=== PATIENT | male | born 1950 | race Caucasian/White ===

== ENCOUNTER → 2016-12-29 | Outpatient (CLI) | payer MEDICARE ==
--- NOTE | 2016-12-29 09:19 | CARD ---
APPROVED REPORT EXAM: Two-dimensional and M-mode echocardiogram with Doppler and color Doppler. Other Information Quality : Average Rhythm : NSR with PAC's INDICATION Atrial Fibrillation 2D DIMENSIONS Left Atrium(2D)3.4 (1.6-4.0cm)IVSd1.5 (0.7-1.1cm) Aortic Root(2D)4.0 (2.0-3.7cm)LVDd4.6 (3.9-5.9cm) LVOT Diameter2.4 (1.8-2.4cm)PWd1.5 (0.7-1.1cm) LVDs3.4 (2.5-4.0cm)FS (%) 26.5 % SV49.5 mlLVEF(%)51.9 (>50%) Aortic Valve AoV Peak Moises.127.1cm/sAoV VTI24.4cm AO Peak GR.6.5mmHgLVOT Peak Moises.94.6cm/s LVOT VTI 19.09cmAO Mean GR.4mmHg TERRI (VMAX)3.34te3GCC (VTI)3.59cm2 AI P 1/2 Cqek591vz Mitral Valve MV E Rmkcgnbj75.1cm/sMV DECEL QQZY581wl MV A Pdgsrxrk37.5cm/sE/A Ratio0.6 MV A Mexbquum996zf Tricuspid Valve TR P. Equtwhtf528yj/sRAP YQOZPSAF0vtDu TR Peak Gr.63spHjMDZB24nvGs LEFT VENTRICLE The left ventricle is normal size. There is mild to moderate concentric left ventricular hypertrophy. Left ventricle systolic function is low normal. The Ejection Fraction is 50-55%. Subtle global hypok inesis. Transmitral Doppler flow pattern is Grade I-abnormal relaxation pattern. RIGHT VENTRICLE The right ventricle is normal size. The right ventricular systolic function is normal. ATRIA The left atrium size is normal. The right atrium size is normal. The interatrial septum is intact wit h no evidence for an atrial septal defect or patent foramen ovale as noted on 2-D or Doppler imaging. AORTIC VALVE The aortic valve is normal in structure.The aortic valve is trileaflet. Doppler and Color Flow reveal ed trace to mild aortic regurgitation. There is no significant aortic valvular stenosis. MITRAL VALVE The mitral valve leaflets are thickened. There is no mitral valve stenosis. Doppler and Color Flow re vealed trace to mild mitral regurgitation. TRICUSPID VALVE The tricuspid valve is normal in structure and function. Doppler and Color Flow revealed trace tricus pid regurgitation. The PA pressure was estimated at 16 mmHg. There is no tricuspid valve stenosis. PULMONIC VALVE The pulmonic valve is not well visualized. Doppler and Color Flow revealed mild pulmonic valvular reg urgitation. There is no pulmonic valvular stenosis. GREAT VESSELS The aortic root is mildly to moderately enlarged. Measuring 4.0 cm. The ascending aorta is mildly to moderately dilated. Measuring 4.1cm. Pulmonary veins not recorded. The IVC is normal in size and kevon apses >50% with inspiration. PERICARDIAL EFFUSION There is no evidence of significant pericardial effusion. Critical Notification Critical Value: No <Conclusion> Left ventricle systolic function is low normal. The Ejection Fraction is 50-55%. Subtle global hypokinesis. Doppler and Color Flow revealed trace to mild aortic regurgitation. The ascending aorta is mildly to moderately dilated. Measuring 4.1cm.
== END | disposition home or self-care (01) ==
LOC: ECHO 07:42
PROVIDERS: ATTEND Internal Medicine Cardiovascular Disease
DX: I48.0 Paroxysmal atrial fibrillation (principal); I08.0 Rheumatic disorders of both mitral and aortic valves
CPT/HCPCS: 93306

== ENCOUNTER → 2018-01-11 | Outpatient (CLI) | payer MEDICARE ==
--- NOTE | 2018-01-11 13:49 | CARD ---
MR#: [id number] Date of Study: 01/11/2018 Ordering Physician: JOHN MCKINNON, Referring Physician: JOHN MCKINNON, Tech: SIGIFREDO Merino APPROVED REPORT EXAM: Two-dimensional and M-mode echocardiogram with Doppler and color Doppler. Other Information Quality : Technically Difficult INDICATION PAF Hx- Cardioversion (2017) 2D DIMENSIONS Left Atrium(2D)4.6 (1.6-4.0cm)IVSd1.2 (0.7-1.1cm) Aortic Root(2D)4.5 (2.0-3.7cm)LVDd5.6 (3.9-5.9cm) LVOT Diameter2.4 (1.8-2.4cm)PWd1.3 (0.7-1.1cm) LVDs4.7 (2.5-4.0cm)FS (%) 18.0 % SV50.0 mlLVEF(%)40.0 (>50%) Aortic Valve LVOT Peak Moises.86.8cm/Twan P 1/2 Yqqi207zc Mitral Valve MV E Peak Gr.134mmHg Tricuspid Valve TR P. Wiymydpn040ct/sRAP ZIQINWHH8hpEo TR Peak Gr.60koKcZJOC90yeOk LEFT VENTRICLE The left ventricle is normal size. There is mild concentric left ventricular hypertrophy. The systoli c function is mildly impaired. The Ejection Fraction is 40-45%. There is global hypokinesis of the le ft ventricle. Tissue Doppler imaging reveals moderate left ventricular diastolic dysfunction. No left ventricle thrombus noted on this study. RIGHT VENTRICLE The right ventricle is normal size. There is normal right ventricular wall thickness. The right ventr icular systolic function is normal. ATRIA The left atrium is moderately dilated. The right atrium is borderline dilated. The interatrial septum is intact with no evidence for an atrial septal defect or patent foramen ovale as noted on 2-D or Do ppler imaging. AORTIC VALVE The aortic valve is trileaflet. Doppler and Color Flow revealed mild aortic regurgitation. There is n o significant aortic valvular stenosis. MITRAL VALVE There is no mitral valve stenosis. Doppler and Color-flow revealed moderate mitral regurgitation. TRICUSPID VALVE The tricuspid valve is normal in structure and function. Doppler and Color Flow revealed moderate tri cuspid regurgitation. There is mild pulmonary hypertension. PASP is 40mmHg. There is no tricuspid joshua ve stenosis. PULMONIC VALVE The pulmonic valve is not well visualized. Doppler and Color Flow revealed mild pulmonic valvular reg urgitation. There is no pulmonic valvular stenosis. GREAT VESSELS The aortic root is moderately enlarged (4.5cm). The ascending aorta is mildly dilated (4.1cm) The aor tic arch is within normal limits. The IVC is normal in size and collapses >50% with inspiration. PERICARDIAL EFFUSION There is no pleural effusion. There is no evidence of significant pericardial effusion. Critical Notification Physician Notified Physician Name:Blanche Goodson. [employer]WORK [employer] Critical Value: No <Conclusion> The systolic function is mildly impaired. The Ejection Fraction is 40-45%. There is global hypokinesis of the left ventricle. Doppler and Color Flow revealed mild aortic regurgitation. Doppler and Color Flow revealed moderate tricuspid regurgitation. There is mild pulmonary hypertensio n. PASP is 40mmHg. Doppler and Color Flow revealed mild pulmonic valvular regurgitation. The aortic root is moderately enlarged (4.5cm). The ascending aorta is mildly dilated (4.1cm) The aortic arch is within normal limits. Signed by : John Mckinnon, Electronically Approved : 01/11/2018 13:48:45
== END | disposition home or self-care (01) ==
LOC: ECHO 07:44
PROVIDERS: ATTEND Internal Medicine Cardiovascular Disease
DX: I08.8 Other rheumatic multiple valve diseases (principal); I27.20 Pulmonary hypertension, unspecified
CPT/HCPCS: 93306

== ENCOUNTER → 2019-01-17 | Outpatient (CLI) | payer MEDICARE ==
--- NOTE | 2019-01-17 08:39 | CARD ---
MR#: [id number] Date of Study: 01/17/2019 Ordering Physician: JOHN MCKINNON, Referring Physician: JOHN MCKINNON, Tech: Mayela Lester [facility] APPROVED REPORT EXAM: Two-dimensional and M-mode echocardiogram with Doppler and color Doppler. Other Information Quality : AverageHR: 62bpm Rhythm : NSRTechnically limited study due to body habitus. INDICATION Atrial Fibrillation 2D DIMENSIONS RVDd3.3 (2.9-3.5cm)Left Atrium(2D)4.1 (1.6-4.0cm) IVSd1.4 (0.7-1.1cm)Aortic Root(2D)4.0 (2.0-3.7cm) LVDd5.9 (3.9-5.9cm)LVOT Diameter2.6 (1.8-2.4cm) PWd1.1 (0.7-1.1cm)LVDs4.4 (2.5-4.0cm) FS (%) 25.8 %SV87.4 ml LVEF(%)49.9 (>50%) M-Mode DIMENSIONS Left Atrium(MM)3.48 (2.5-4.0cm)Aortic Root4.49 (2.2-3.7cm) Aortic Valve AoV Peak Moises.148.6cm/sAoV VTI32.0cm AO Peak GR.8.8mmHgLVOT Peak Moises.93.9cm/s LVOT VTI 23.57cmAO Mean GR.5mmHg TERRI (VMAX)3.54ex9RFA (VTI)3.78cm2 AI P 1/2 Hwrl154pa Mitral Valve MV E Bpkpjssn15.8cm/sMV DECEL HGAT761oc MV A Ixbdgpqp01.9cm/sE/A Ratio0.8 Pulmonary Valve PV Peak Ssdhylnt690.1cm/sPV Peak Grad.5mmHg Tricuspid Valve TR P. Quqcrnwt124hw/sRAP DPPALMBE9vjRd TR Peak Gr.41qgRkMZBS11kbLe LEFT VENTRICLE The Left Ventricle is mildly dilated. There is mild concentric left ventricular hypertrophy. Left jeffrey tricle systolic function is mildly decreased. EF 45-50% There is mild global hypokinesis of the left ventricle. Transmitral Doppler flow pattern is Grade I-abnormal relaxation pattern. RIGHT VENTRICLE The right ventricle is normal size. There is normal right ventricular wall thickness. The right ventr icular systolic function is normal. ATRIA The left atrium is mildly dilated. The right atrium size is normal. The interatrial septum is intact with no evidence for an atrial septal defect or patent foramen ovale as noted on 2-D or Doppler imagi ng. AORTIC VALVE The aortic valve is normal in structure and function. The aortic valve is trileaflet. Doppler and Col or Flow revealed mild to moderate aortic regurgitation. There is no significant aortic valvular steno sis. There is no aortic valvular vegetation. MITRAL VALVE The mitral valve is thickened but opens well. There is no evidence of mitral valve prolapse. There is no mitral valve stenosis. Doppler and Color-flow revealed mild mitral regurgitation. TRICUSPID VALVE The tricuspid valve is normal in structure and function. Doppler and Color Flow revealed mild tricusp id regurgitation. The PA pressure was estimated at 27 mmHg. There is no tricuspid valve prolapse or v egetation. There is no tricuspid valve stenosis. PULMONIC VALVE The pulmonic valve is not well visualized. Doppler and Color Flow revealed mild pulmonic valvular reg urgitation. There is no pulmonic valvular stenosis. GREAT VESSELS The aortic root is mildly enlarged. The ascending aorta is Mildly dilated at 4.1cm. The IVC is normal in size and collapses >50% with inspiration. PERICARDIAL EFFUSION There is no evidence of significant pericardial effusion. Critical Notification Critical Value: No <Conclusion> Left ventricle systolic function is mildly decreased. EF 45-50% There is mild global hypokinesis of the left ventricle. Doppler and Color Flow revealed mild to moderate aortic regurgitation. Doppler and Color-flow revealed mild mitral regurgitation. The ascending aorta is mildly dilated at 4.1cm. Signed by : John Mckinnon, Electronically Approved : 01/17/2019 08:39:25
== END | disposition home or self-care (01) ==
LOC: ECHO 07:47
PROVIDERS: ATTEND Internal Medicine Cardiovascular Disease
DX: I08.8 Other rheumatic multiple valve diseases (principal); I77.89 Other specified disorders of arteries and arterioles; I48.0 Paroxysmal atrial fibrillation
CPT/HCPCS: 93306

== ENCOUNTER → 2019-05-25 | Outpatient (CLI) | payer MEDICARE | END | disposition home or self-care (01) | LOC: LAB 09:11 | PROVIDERS: ATTEND Internal Medicine | DX: I48.0 Paroxysmal atrial fibrillation (principal) | CPT/HCPCS: 36415; 85610 ==

== ENCOUNTER → 2020-01-02 | Outpatient (CLI) | payer MEDICARE ==
--- NOTE | 2020-01-02 10:17 | CARD ---
MR#: [id number] Date of Study: 01/02/2020 Ordering Physician: JOHN MCKINNON, Referring Physician: JOHN MCKINNON, Tech: Martina Mcmanus [facility] APPROVED REPORT EXAM: Two-dimensional and M-mode echocardiogram with Doppler and color Doppler. Other Information Quality : Good INDICATION Cardiomyopathy 2D DIMENSIONS RVDd3.7 (2.9-3.5cm)Left Atrium(2D)3.1 (1.6-4.0cm) IVSd1.3 (0.7-1.1cm)Aortic Root(2D)4.3 (2.0-3.7cm) LVDd5.4 (3.9-5.9cm)LVOT Diameter2.6 (1.8-2.4cm) PWd1.1 (0.7-1.1cm)LVDs3.5 (2.5-4.0cm) FS (%) 35.7 %SV92.2 ml LVEF(%)64.7 (>50%) Aortic Valve AoV Peak Moises.121.9cm/sAoV VTI27.2cm AO Peak GR.5.9mmHgLVOT Peak Moises.94.4cm/s LVOT VTI 20.15cmAO Mean GR.4mmHg TERRI (VMAX)4.05fs7HKB (VTI)3.94cm2 AI P 1/2 Twpm038kl Mitral Valve MV E Muckmvpx57.8cm/sMV DECEL EUMD885xw MV A Qhwgzuvp44.9cm/sE/A Ratio0.5 Tricuspid Valve TR P. Bznyxsur455qa/sRAP UFWAMFVU9nlPg TR Peak Gr.48tgTkTFOD91raKu Pulmonary Vein S1 Wgbhgeyy59.0cm/sD2 Grynijyf28.6cm/s LEFT VENTRICLE The left ventricle is normal size. There is mild asymmetric septal hypertrophy. The left ventricular systolic function is normal. The Ejection Fraction is 55-60%. There is normal LV segmental wall motio n. Transmitral Doppler flow pattern is Grade I-abnormal relaxation pattern. RIGHT VENTRICLE The right ventricle is normal size. The right ventricular systolic function is normal. ATRIA The left atrium size is normal. The right atrium size is normal. The interatrial septum is intact wit h no evidence for an atrial septal defect or patent foramen ovale as noted on 2-D or Doppler imaging. AORTIC VALVE The aortic valve is calcified but opens well. Doppler and Color Flow revealed mild to moderate aortic regurgitation. There is no significant aortic valvular stenosis. MITRAL VALVE The mitral valve is normal in structure and function. There is no evidence of mitral valve prolapse. There is no mitral valve stenosis. Doppler and Color-flow revealed mild mitral regurgitation. TRICUSPID VALVE The tricuspid valve is normal in structure and function. Doppler and Color Flow revealed mild tricusp id regurgitation. The PA pressure was estimated at 27 mmHg. There is no tricuspid valve stenosis. PULMONIC VALVE The pulmonic valve is not well visualized. Doppler and Color Flow revealed mild pulmonic valvular reg urgitation. There is no pulmonic valvular stenosis. GREAT VESSELS The aortic root is normal in size. The ascending aorta is mildly dilated at 3.5 cm. The IVC is normal in size and collapses >50% with inspiration. PERICARDIAL EFFUSION There is no evidence of significant pericardial effusion. Critical Notification Critical Value: No <Conclusion> The left ventricular systolic function is normal. The Ejection Fraction is 55-60%. There is normal LV segmental wall motion. Transmitral Doppler flow pattern is Grade I-abnormal relaxation pattern. Mild to moderate aortic regurgitation. Mild mitral regurgitation. Mild tricuspid regurgitation. The PA pressure was estimated at 27 mmHg. There is no evidence of significant pericardial effusion. Signed by : Mp Banegas, Electronically Approved : 01/02/2020 10:17:10
== END | disposition home or self-care (01) ==
LOC: ECHO 07:59
PROVIDERS: ATTEND Internal Medicine Cardiovascular Disease
DX: I08.8 Other rheumatic multiple valve diseases (principal); I42.9 Cardiomyopathy, unspecified
CPT/HCPCS: 93306

== ENCOUNTER → 2020-12-30 | Outpatient (CLI) | payer MEDICARE ==
--- NOTE | 2020-12-30 15:12 | CARD ---
MR#: [id number] Date of Study: 12/30/2020 Ordering Physician: BRITTANEY DELACRUZ, Referring Physician: BRITTANEY DELACRUZ, Tech: Gaviota Nagelmian, [facility] APPROVED REPORT EXAM: Two-dimensional and M-mode echocardiogram with Doppler and color Doppler. Other Information Quality : AverageHR: 92bpm INDICATION Atrial Fibrillation RISK FACTORS Hypertension 2D DIMENSIONS Left Atrium(2D)3.3 (1.6-4.0cm)IVSd1.5 (0.7-1.1cm) Aortic Root(2D)4.2 (2.0-3.7cm)LVDd5.2 (3.9-5.9cm) LVOT Diameter2.0 (1.8-2.4cm)PWd1.5 (0.7-1.1cm) LVDs3.4 (2.5-4.0cm)FS (%) 33.8 % SV80.1 mlLVEF(%)52.2 (>50%) Aortic Valve AoV Peak Moises.120.0cm/sAoV VTI22.5cm AO Peak GR.5.8mmHgLVOT Peak Moises.88.3cm/s LVOT VTI 17.14cmAO Mean GR.3mmHg TERRI (VMAX)2.07tl5BBZ (VTI)2.41cm2 AI P 1/2 Fpqs356ak Mitral Valve MV E Tqfkzosx88.6cm/sMV E Peak Gr.114mmHg MV DECEL IWAB966fhJQ A Qfhxribt98.7cm/s MV E Mean Gr.67mmHgE/A Ratio2.8 Pulmonary Valve PV Peak Qtxngnrz19.8cm/sPV Peak Grad.2mmHg Tricuspid Valve TR P. Pmxsubme681yi/sRAP IMYWRQFK9inYx TR Peak Gr.89yuHkGCPX16izWf LEFT VENTRICLE The left ventricle is normal size. There is moderate to severe concentric left ventricular hypertroph y. The Ejection Fraction is 40-45%. The left ventricular systolic function is mildly decreased. There is mild global hypokinesis. Tissue Doppler imaging reveals moderate left ventricular diastolic dysfu nction. RIGHT VENTRICLE The right ventricle is borderline dilated. There is normal right ventricular wall thickness. Wall mot ion consistent with conduction abnormality. ATRIA The left atrium is borderline dilated. The right atrium is moderately dilated. The interatrial septum is intact with no evidence for an atrial septal defect or patent foramen ovale as noted on 2-D or Do ppler imaging. AORTIC VALVE The aortic valve is normal in structure and function. Doppler and Color Flow revealed mild aortic reg urgitation. There is no significant aortic valvular stenosis. Calculated aortic valve area is 2.7 cm2 with maximum pressure gradient of 6 mmHg and mean pressure gradient of 4 mmHg. MITRAL VALVE The mitral valve is normal in structure and function. There is no evidence of mitral valve prolapse. There is no mitral valve stenosis. Doppler and Color-flow revealed mild to moderate mitral regurgitat ion. TRICUSPID VALVE The tricuspid valve is normal in structure and function. Doppler and Color Flow revealed trace tricus pid regurgitation with an estimated PAP of 35 mmHg. There is no tricuspid valve stenosis. PULMONIC VALVE The pulmonic valve is not well visualized. Doppler and Color Flow revealed trace to mild pulmonic joshua vular regurgitation. There is no pulmonic valvular stenosis. GREAT VESSELS The aortic root is mildly enlarged measuring 4.2 cm. The ascending aorta is borderline dilated measur ing 3.8 cm. The IVC is normal in size and collapses >50% with inspiration. PERICARDIAL EFFUSION There is no evidence of significant pericardial effusion. Critical Notification Critical Value: No <Conclusion> The Ejection Fraction is 40-45%. The left ventricular systolic function is mildly decreased. There is mild global hypokinesis. Doppler and Color-flow revealed mild to moderate mitral regurgitation. The ascending aorta is borderline dilated measuring 3.8 cm. Signed by : Cory Londono, Electronically Approved : 12/30/2020 15:12:26
== END ==
LOC: ECHO 09:55
PROVIDERS: ATTEND Physician Assistant
DX: I08.8 Other rheumatic multiple valve diseases (principal); I48.0 Paroxysmal atrial fibrillation; I11.9 Hypertensive heart disease without heart failure; I42.9 Cardiomyopathy, unspecified
CPT/HCPCS: 93306